=== PATIENT | male | born 1940 | race Caucasian/White ===

== ENCOUNTER → 2023-07-22 | Outpatient (CLI) | payer MEDICARE, BC ==
[~2023-07-22] MED LIST: ASPIRIN 32325 MG/TA1 PO; DILANTIN 100MG100 MG PO; MEVACOR40 MG PO; NORCO 325 MG-51 TAB PO; PRILOSEC 20MG20 MG PO; ZANTAC 150MG T150 MG PO
== END ==
LOC: COL.LAB 12:31
DX: R05.9 Cough, unspecified (principal)